=== PATIENT | female | born 1995 | race Caucasian/White ===

== ENCOUNTER 2016-08-12 09:05 | Emergency (ER) | payer BC ==
--- NOTE | 2016-08-13 02:31 | ED ORDER SUMMARY ---
..... Patient: LIONEL PATTEN OrderSheet [facility] VisitID: [id number] [address] [place] [address] 21y, F Registration Date/Time: 08/12/2016 ORDER SHEET Weight: 77.1 kg (stated) Allergies: Codeine GENERAL ORDERS: CBC w Diff Urgent (10:12 08/12/2016 Leighton WAYNE) (Ack 10:21 Lynnette) (11:05 German R.N.) CMP Urgent (10:12 08/12/2016 Leighotn WAYNE) (Ack 10:21 TOMoekali) (11:05 German R.N.) UA-Culture if indicated Urgent (10:12 08/12/2016 Leighton WAYNE) (Ack 10:21 Lynnette) (10:41 German R.N.) Old Records (from walk in clinic.) (10:13 08/12/2016 Leighton WAYNE) (Ack 10:21 Lynnette) (10:27 Lynnette) MEDICATION ORDERS: IV FLUIDS: IV NS : initial bolus 1000 mL (1000 mL/hr), then none - for X1 (NOW); Routine (10:11 08/12/2016 Leighton WAYNE) (Ack 10:17 German R.N.) (11:01 Ivan R.N.) Zofran IV 4 mg (NOW) (10:12 08/12/2016 Leighton WAYNE) (Ack 10:17 German R.N.) (11:01 Ivan R.N.) Rocephin IV 2 gm/50mL (NOW) (11:34 08/12/2016 Leighton WAYNE) (Ack 11:54 German R.N.) (12:13 Ivan R.N.) ORDER SHEET NOTES: [Electronically signed by Sakina Garnica R.N. (12:40 08/12/2016)] [Electronically signed by Guillermo Whitman MD (15:08 08/12/2016)] [Electronically locked/signed by Sakina Garnica R.N. (12:40 08/12/2016)]
--- NOTE | 2016-08-13 02:31 | ED CLINICAL REPORT ---
Clinical Report - Physicians/Mid Levels [facility] [address] [place] [address] 08/12/2016 9:08 Patient: LIONEL PATTEN Time Seen: 10:03 Aug 12 2016. Arrived- By private vehicle. Historian- patient. CPT: ER phys charges level 4 (#[id number]). HISTORY OF PRESENT ILLNESS Chief Complaint: DYSURIA. 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 Was seen at walk-in clinic on Wednesday, dx UTI, started Abx and gave 2 liters IVF.). Has only taken 1 pill of antibiotic due to picking up the medication yesterday. and still present. The symptoms are described as moderate. Modifying factors- worsened by urination. Not relieved by anything. No abdominal pain, pelvic pain, low back pain, flank pain or abnormal bleeding. No vaginal discharge. She has had pain with urination. Sexually active. control measures utilized. (Fever and chills.). Similar symptoms previously: As bad. Diagnosis: UTI. Recent medical care: Not recently seen/assessed. REVIEW OF SYSTEMS The patient has had nausea. She has had vomiting and chills. No fever, sore throat, cough, difficulty breathing or chest pain. No skin rash, enlarged lymph nodes or joint pain. Last food was dinner last night. Mild burning with urination.). All systems otherwise negative, except as recorded above. PAST HISTORY ( UTI - Urinary Tract Infection. Asthma.). Additional Surgeries: no known surgeries. Medications: Abx for UTI ???. NuvaRing Vaginal. Allergies: Codeine. Mild (Hyperactive). SOCIAL HISTORY Never smoker. Occasional alcohol use. No drug use. ADDITIONAL NOTES The nursing notes have been reviewed. PHYSICAL EXAM Vital Signs: 08/12/2016 09:25 BP: 118/71. HR: 80. RR: 16. O2 saturation: 100%. Temp: 97.7 F. Pain level now: 3/10. Appearance: Alert. No acute distress. HEENT: Normal external inspection. ENT: Pharynx normal. Neck: Neck supple. CVS: Heart sounds normal. Respiratory: No respiratory distress. Breath sounds normal. Chest nontender. Abdomen: Soft and nontender. Bowel sounds normal. Back: Normal external inspection. No CVA tenderness. Skin: Skin warm. Normal skin color. No rash. Extremities: Extremities nontender. No lower extremity edema. Neuro: Oriented X 3. Mood/affect normal. No motor deficit. No sensory deficit. LABS, X-RAYS, AND EKG Laboratory Tests: UA-Culture if indicated: (ARIELLE: 08/12/2016 10:30) ( [facility] 08/12/2016 11:00) Final results Test Result Flag Units (Reference) URINE COLOR YELLOW URINE APPEARANCE HAZY URINE GLUCOSE NEGATIVE (NEGATIVE) URINE BILIRUBIN NEGATIVE (NEGATIVE) URINE KETONE NEGATIVE (NEGATIVE) URINE SPECIFIC GRAVITY 1.010 (1.010-1.030) URINE PH 7.5 (5.0-8.0) URINE PROTEIN NEGATIVE (NEGATIVE) URINE UROBILINOGEN 0.2 EU/dL (0.2-1.0) URINE NITRITE NEGATIVE (NEGATIVE) URINE BLOOD NEGATIVE (NEGATIVE) URINE LEUK ESTERASE POSITIVE (NEGATIVE) URINE RBC NONE SEEN rbc/hpf (0-1) URINE WBC 3-5 wbc/hpf (0-1) URINE EPITHELIAL CELLS 5-10 EPI/hpf (0-5) URINE BACTERIA MANY (4+) (NONE SEEN) URINE COMMENT CULTURE INDICATED URINE CULTURES ARE SET-UP BASED ON THE FOLLOWING CRITERIA:POSITIVE NITRITEPOSITIVE LEUKOCYTE ESTERASEGREATER THAN 10 WHITE BLOOD CELLSMODERATE (2+) OR GREATER BACTERIA CBC w Diff: (ARIELLE: 08/12/2016 10:46) ( [facility] 08/12/2016 11:32) Final results Test Result Flag Units (Reference) WHITE BLOOD COUNT 9.9 K/uL (4.5-11.5) RED BLOOD COUNT 4.44 M/uL (4.00-5.20) HEMOGLOBIN 14.1 gm/dL (12.0-16.0) HEMATOCRIT 42.0 % (36.0-46.0) MEAN CELL VOLUME 95 fL (80-100) MEAN CORPUSCULAR HGB 32 pg (26-34) MEAN CORPUSCULAR HGB CONC 34 g/dL (31-37) RED CELL DISTRIBUTION WIDTH 12.8 % (11.6-14.8) PLATELET COUNT 290 K/uL (150-400) NEUTROPHIL % 79.8 H % (50-75) LYMPH % 15.4 L % (25-40) MONO % 4.1 % (3-14) EOSINOPHIL % 0.5 % (0-4) BASOPHIL % 0.2 % (0-2) CMP: (ARIELLE: 08/12/2016 10:46) ( MsgRcvd 08/12/2016 11:38) Final results Test Result Flag Units (Reference) GLUCOSE 120 H mg/dL (70-110) BUN 9 mg/dL (7-18) CREATININE 1.1 mg/dL (0.6-1.3) Estimated GFR >60 mL/min Estimated GFR- >60 mL/min Note: Persistent reduction over 3 months in eGFR<60 mL/min/1.73 m2 defines CKD. Patients with eGFR values>=60 mL/min/1.73 m2 may also have CKD if evidence ofpersistent proteinuria. Additional information may be foundat www.kidney.org. SODIUM 144 mmol/L (136-145) POTASSIUM 3.9 mmol/L (3.5-5.1) CHLORIDE 105 mmol/L (98-107) CARBON DIOXIDE 26 mmol/L (21-32) CALCIUM 9.7 mg/dL (8.5-10.1) TOTAL PROTEIN 7.9 g/dL (6.4-8.2) ALBUMIN 3.6 g/dL (3.3-5.0) BILIRUBIN, TOTAL 0.2 mg/dL (0.0-1.0) ALKALINE PHOSPHATASE 54 U/L (46-116) AST (SGOT) 16 U/L (15-37) ALT (SGPT) 16 U/L (12-78) . PROGRESS AND PROCEDURES Course of Care: IV NS Zofran 4 mg IV Rocephin 2g IV Patient is stable. Pt not aware of the name of her current antibiotic for her UTI. Patient/family counseled. Disposition: Discharged. Condition: stable. CLINICAL IMPRESSION Recent dental extraction Nausea and vomiting due to antibiotics and or vicodin Persistent UTI. INSTRUCTIONS No strenuous activity. Rest. Do not work today, for one day until better. Drink plenty of fluids. Warnings: Further evaluation is necessary. GENERAL WARNINGS: Return or contact your physician immediately if your condition worsens or changes unexpectedly, if not improving as expected, or if other problems arise. Your Current Medications: CONTINUE TAKING THE FOLLOWING MEDICATIONS: Abx for UTI ???*. NuvaRing Vaginal. Prescription Medications: Pyridium 200 mg: take 1 orally every 8 hours as needed for urinary problems. Dispense six (6). No refills. Substitution is permissible. Septra DS 800 mg / 160 mg: take 1 tablet orally every 12 hours for 7 days. Dispense fourteen (14). No refills. Substitution is permissible. Phenergan 25 mg suppositories: insert 1 rectally every 6 hours as needed for nausea. Dispense ten (10). No refill. Substitution is permissible Follow-up: Follow up with your doctor in two days if not better. Understanding of the discharge instructions verbalized by patient and parent. (Electronically signed by Guillermo Whitman MD 08/12/2016 15:08)
--- NOTE | 2016-08-13 02:31 | ED ORDER SUMMARY ---
..... Patient: LIONEL PATTEN OrderSheet [facility] VisitID: [id number] [address] [place] [address] 21y, F Registration Date/Time: 08/12/2016 ORDER SHEET Weight: 77.1 kg (stated) Allergies: Codeine GENERAL ORDERS: CBC w Diff Urgent (10:12 08/12/2016 Leighton WAYNE) (Ack 10:21 Lynnette) (11:05 German R.N.) CMP Urgent (10:12 08/12/2016 Leighton WAYNE) (Ack 10:21 TOMoekali) (11:05 German R.N.) UA-Culture if indicated Urgent (10:12 08/12/2016 Leighton WAYNE) (Ack 10:21 Lynnette) (10:41 German R.N.) Old Records (from walk in clinic.) (10:13 08/12/2016 Leighton WAYNE) (Ack 10:21 Lynnette) (10:27 Lynnette) MEDICATION ORDERS: IV FLUIDS: IV NS : initial bolus 1000 mL (1000 mL/hr), then none - for X1 (NOW); Routine (10:11 08/12/2016 Leighton WAYNE) (Ack 10:17 German R.N.) (11:01 Ivan R.N.) Zofran IV 4 mg (NOW) (10:12 08/12/2016 Leighton WAYNE) (Ack 10:17 German R.N.) (11:01 Ivan R.N.) Rocephin IV 2 gm/50mL (NOW) (11:34 08/12/2016 Leighton WAYNE) (Ack 11:54 German R.N.) (12:13 Ivan R.N.) ORDER SHEET NOTES: [Electronically signed by Sakina Garnica R.N. (12:40 08/12/2016)] [Electronically signed by Guillermo Whitman MD (15:08 08/12/2016)] [Electronically locked/signed by Sakina Garnica R.N. (12:40 08/12/2016)]
--- NOTE | 2016-08-13 02:31 | ED NURSING NOTES ---
Clinical Report - [facility] [address] [place] [address] 08/12/2016 9:08 Patient: LIONEL PATTEN TRIAGE Triage time 09:26. Acuity: LEVEL 3. Chief Complaint: (Vomiting and chills. Was seen at walk-in clinic on Wednesday, dx UTI, started Abx and gave 2 liters IVF.). 09:30 08/12/16. SEPSIS SCREEN: Sepsis Screen. Negative (no infection suspected/documented). EDELMIRA COMA SCORE: Edelmira Coma Scale: 15- eyes open spontaneously (4); best verbal response- oriented x 4 (5); best motor response- obeys commands (6). --09:35 Bassam Freed R.N. 09:25 08/12/16. BP: 118/71. HR: 80. RR: 16. O2 saturation: 100% on room air. Temp: 97.7 F (oral). Pain level now: 08/14. --09:35 Bassam Freed R.N. Weight: 77.1 kg stated. Height/Length: 67 inches Per Patient. BMI: 26.6. --09:29 Bassam Freed R.N. Medications NuvaRing Vaginal. --09:27 Bassam Freed R.N. Abx for UTI ???. --09:27 Bassam Freed R.N. Allergies Codeine. Mild (Hyperactive) --09:27 Bassam Freed R.N. History Arrived by private vehicle. Historian: patient and family. ( Last food was dinner last night. Mild burning with urination.). 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 PAST MEDICAL HX: Last normal menstrual period- none - Nuva Ring. SOCIAL HX: Never smoker. Occasional alcohol use. No drug use. ABUSE ASSESSMENT: No report of abuse. --09:35 Bassam Freed R.N. PROBLEMS: UTI - Urinary Tract Infection. Asthma. --09:28 Bassam Freed R.N. ADDITIONAL SURGERIES: no known surgeries. Interventions ID band on patient. To treatment room. --09:35 Bassam Freed R.N. PHYSICAL ASSESSMENT 09:36 08/12/16. Ambulatory to room. GENERAL / NEURO / PSYCH: Alert. Oriented X 4. HEENT: Pupils equal, round and reactive to light. No facial asymmetry noted. Mucous membranes are pink. RESPIRATORY: Respirations not labored. Chest nontender. Breath sounds within normal limits. CVS: Capillary refill less than 2 seconds. Pulses within normal limits. GI / : ( abd tender only when vomiting, otherwise pain free). Abdomen soft and normal bowel sounds. SKIN: Skin is pale. Skin is warm and dry. Normal skin turgor. --09:36 Bassam Freed R.N. NURSING PROGRESS NOTES late entry -09:29. Patient gowned. Head of bed elevated. Reassurance given. Two patient identifiers checked. Call light placed in reach. Bed placed in lowest position. Brakes of bed on. Patient ready for evaluation- chart flagged. --09:59 Bassam Freed R.N. 10:42 08/12/16. Patient ID band checked for patient name and birthdate. Instructions provided to collect clean catch urine and patient verbalized understanding. Clean catch urine collected with return of yellow-colored urine; sample sent to lab for urinalysis and culture. Specimen labeled in the presence of the patient. --10:42 Pascual Pardo R.N. 10:50 08/12/2016 Site #1 started via IV in the left antecubital space with an 20g angiocath; two attempts. Blood drawn: rainbow set. Labeled in the presence of the patient and sent to the lab (two unsuccessful IV attempts. Pascual Barrett RN obtained IV access.). --11:00 Sakina Garnica R.N. 11:00 08/12/2016 Started bag #1 1000 mL IV Fluids IV NS (Saline); bolus of 1000 mL over 1 hour(s) via site #1. Allergies verified and confirmed 5 rights. IV patency established. IV site checked: no pain, redness, or swelling. IV flushed thoroughly pre- and post-medication administration. --11:01 Sakina Garnica R.N. 11:01 08/12/2016 Zofran (Ondansetron HCl) IVP 4 mg given over 2 minute(s) via site #1. Allergies verified and confirmed 5 rights. IV patency established. IV site checked: no pain, redness, or swelling. IV flushed thoroughly pre- and post-medication administration. IVP given by RN. --11:01 Sakina Garnica R.N. 11:28 08/12/16. BP: 112/70. HR: 74. RR: 14. O2 saturation: 100% on room air. --11:28 Pascual Pardo R.N. 11:28 08/12/2016 IV Fluids IV NS Discontinued: bag #1 infused. Total amount infused: 1000 mL. IV patency established. IV site checked: no pain, redness, or swelling. IV flushed thoroughly. --11:28 Pascual Pardo R.N. 11:28 08/12/16. --11:28 Pascual Pardo R.N. 12:11 08/12/2016 Started 2 gm of Rocephin (CefTRIAXone Sodium) IVPB in bag #1 50 mL; at 150 mL/hr over 20 minute(s) via site #1; Allergies verified and confirmed 5 rights. IV patency established. IV site checked: no pain, redness, or swelling. IV flushed thoroughly pre- and post-medication administration. --12:13 Sakina Garnica R.N. DISPOSITION / DISCHARGE 12:36 08/12/16. --12:36 Sakina Garnica R.N. 12:35 08/12/16. BP: 113/65. HR: 54. RR: 17. O2 saturation: 95%. Temp: deferred. Pain level now: 0/10. --12:36 Sakina Garnica R.N. 12:38 08/12/16. No learning barriers present. Discharge instructions provided and reviewed with the patient and parent. Reviewed medication(s). Treatments reviewed. Activity restrictions reviewed. Work note given. Patient verbalized understanding. Written instructions provided in Cambodian. The patient was discharged by the physician. She was discharged home. --12:38 Sakina Garnica R.N. Locked/Released at 08/12/2016 12:40 by Sakina Garnica R.N.
--- NOTE | 2016-08-13 02:31 | ED CLINICAL REPORT ---
Clinical Report - Physicians/Mid Levels [facility] [address] [place] [address] 08/12/2016 9:08 Patient: LIONEL PATTEN Time Seen: 10:03 Aug 12 2016. Arrived- By private vehicle. Historian- patient. CPT: ER phys charges level 4 (#[id number]). HISTORY OF PRESENT ILLNESS Chief Complaint: DYSURIA. 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 Was seen at walk-in clinic on Wednesday, dx UTI, started Abx and gave 2 liters IVF.). Has only taken 1 pill of antibiotic due to picking up the medication yesterday. and still present. The symptoms are described as moderate. Modifying factors- worsened by urination. Not relieved by anything. No abdominal pain, pelvic pain, low back pain, flank pain or abnormal bleeding. No vaginal discharge. She has had pain with urination. Sexually active. control measures utilized. (Fever and chills.). Similar symptoms previously: As bad. Diagnosis: UTI. Recent medical care: Not recently seen/assessed. REVIEW OF SYSTEMS The patient has had nausea. She has had vomiting and chills. No fever, sore throat, cough, difficulty breathing or chest pain. No skin rash, enlarged lymph nodes or joint pain. Last food was dinner last night. Mild burning with urination.). All systems otherwise negative, except as recorded above. PAST HISTORY ( UTI - Urinary Tract Infection. Asthma.). Additional Surgeries: no known surgeries. Medications: Abx for UTI ???. NuvaRing Vaginal. Allergies: Codeine. Mild (Hyperactive). SOCIAL HISTORY Never smoker. Occasional alcohol use. No drug use. ADDITIONAL NOTES The nursing notes have been reviewed. PHYSICAL EXAM Vital Signs: 08/12/2016 09:25 BP: 118/71. HR: 80. RR: 16. O2 saturation: 100%. Temp: 97.7 F. Pain level now: 3/10. Appearance: Alert. No acute distress. HEENT: Normal external inspection. ENT: Pharynx normal. Neck: Neck supple. CVS: Heart sounds normal. Respiratory: No respiratory distress. Breath sounds normal. Chest nontender. Abdomen: Soft and nontender. Bowel sounds normal. Back: Normal external inspection. No CVA tenderness. Skin: Skin warm. Normal skin color. No rash. Extremities: Extremities nontender. No lower extremity edema. Neuro: Oriented X 3. Mood/affect normal. No motor deficit. No sensory deficit. LABS, X-RAYS, AND EKG Laboratory Tests: UA-Culture if indicated: (ARIELLE: 08/12/2016 10:30) ( [facility] 08/12/2016 11:00) Final results Test Result Flag Units (Reference) URINE COLOR YELLOW URINE APPEARANCE HAZY URINE GLUCOSE NEGATIVE (NEGATIVE) URINE BILIRUBIN NEGATIVE (NEGATIVE) URINE KETONE NEGATIVE (NEGATIVE) URINE SPECIFIC GRAVITY 1.010 (1.010-1.030) URINE PH 7.5 (5.0-8.0) URINE PROTEIN NEGATIVE (NEGATIVE) URINE UROBILINOGEN 0.2 EU/dL (0.2-1.0) URINE NITRITE NEGATIVE (NEGATIVE) URINE BLOOD NEGATIVE (NEGATIVE) URINE LEUK ESTERASE POSITIVE (NEGATIVE) URINE RBC NONE SEEN rbc/hpf (0-1) URINE WBC 3-5 wbc/hpf (0-1) URINE EPITHELIAL CELLS 5-10 EPI/hpf (0-5) URINE BACTERIA MANY (4+) (NONE SEEN) URINE COMMENT CULTURE INDICATED URINE CULTURES ARE SET-UP BASED ON THE FOLLOWING CRITERIA:POSITIVE NITRITEPOSITIVE LEUKOCYTE ESTERASEGREATER THAN 10 WHITE BLOOD CELLSMODERATE (2+) OR GREATER BACTERIA CBC w Diff: (ARIELLE: 08/12/2016 10:46) ( [facility] 08/12/2016 11:32) Final results Test Result Flag Units (Reference) WHITE BLOOD COUNT 9.9 K/uL (4.5-11.5) RED BLOOD COUNT 4.44 M/uL (4.00-5.20) HEMOGLOBIN 14.1 gm/dL (12.0-16.0) HEMATOCRIT 42.0 % (36.0-46.0) MEAN CELL VOLUME 95 fL (80-100) MEAN CORPUSCULAR HGB 32 pg (26-34) MEAN CORPUSCULAR HGB CONC 34 g/dL (31-37) RED CELL DISTRIBUTION WIDTH 12.8 % (11.6-14.8) PLATELET COUNT 290 K/uL (150-400) NEUTROPHIL % 79.8 H % (50-75) LYMPH % 15.4 L % (25-40) MONO % 4.1 % (3-14) EOSINOPHIL % 0.5 % (0-4) BASOPHIL % 0.2 % (0-2) CMP: (ARIELLE: 08/12/2016 10:46) ( MsgRcvd 08/12/2016 11:38) Final results Test Result Flag Units (Reference) GLUCOSE 120 H mg/dL (70-110) BUN 9 mg/dL (7-18) CREATININE 1.1 mg/dL (0.6-1.3) Estimated GFR >60 mL/min Estimated GFR- >60 mL/min Note: Persistent reduction over 3 months in eGFR<60 mL/min/1.73 m2 defines CKD. Patients with eGFR values>=60 mL/min/1.73 m2 may also have CKD if evidence ofpersistent proteinuria. Additional information may be foundat www.kidney.org. SODIUM 144 mmol/L (136-145) POTASSIUM 3.9 mmol/L (3.5-5.1) CHLORIDE 105 mmol/L (98-107) CARBON DIOXIDE 26 mmol/L (21-32) CALCIUM 9.7 mg/dL (8.5-10.1) TOTAL PROTEIN 7.9 g/dL (6.4-8.2) ALBUMIN 3.6 g/dL (3.3-5.0) BILIRUBIN, TOTAL 0.2 mg/dL (0.0-1.0) ALKALINE PHOSPHATASE 54 U/L (46-116) AST (SGOT) 16 U/L (15-37) ALT (SGPT) 16 U/L (12-78) . PROGRESS AND PROCEDURES Course of Care: IV NS Zofran 4 mg IV Rocephin 2g IV Patient is stable. Pt not aware of the name of her current antibiotic for her UTI. Patient/family counseled. Disposition: Discharged. Condition: stable. CLINICAL IMPRESSION Recent dental extraction Nausea and vomiting due to antibiotics and or vicodin Persistent UTI. INSTRUCTIONS No strenuous activity. Rest. Do not work today, for one day until better. Drink plenty of fluids. Warnings: Further evaluation is necessary. GENERAL WARNINGS: Return or contact your physician immediately if your condition worsens or changes unexpectedly, if not improving as expected, or if other problems arise. Your Current Medications: CONTINUE TAKING THE FOLLOWING MEDICATIONS: Abx for UTI ???*. NuvaRing Vaginal. Prescription Medications: Pyridium 200 mg: take 1 orally every 8 hours as needed for urinary problems. Dispense six (6). No refills. Substitution is permissible. Septra DS 800 mg / 160 mg: take 1 tablet orally every 12 hours for 7 days. Dispense fourteen (14). No refills. Substitution is permissible. Phenergan 25 mg suppositories: insert 1 rectally every 6 hours as needed for nausea. Dispense ten (10). No refill. Substitution is permissible Follow-up: Follow up with your doctor in two days if not better. Understanding of the discharge instructions verbalized by patient and parent. (Electronically signed by Guillermo Whitman MD 08/12/2016 15:08)
--- NOTE | 2016-08-13 02:33 | ED MED RECONCILIATION SUMMARY ---
Patient: LIONEL PATTEN Medication Reconciliation Report [facility] VisitID: [id number] [address] [place] [address] 21y, F Registration Date/Time: 08/12/2016 Weight: 77.1 kg Height/Length: 67 in. BMI: 26.6 ALLERGIES: Codeine The patient's Home Medications are listed below: CONTINUE TAKING THE FOLLOWING MEDICATIONS: Abx for UTI ??? NuvaRing Vaginal The source(s) of the original Home Medication information: Not obtained. The following Medications were given to the patient in the Emergency Department: IV NS IV Fluids bolus 1000 mL over 1 hour(s), administered: 08/12/2016 11:00:00 AM Zofran [IVP] IVP 4 mg, administered: 08/12/2016 11:01:00 AM Rocephin [IVPB] IVPB bolus 0, then 2 gm 150 mL/hr, administered: 08/12/2016 12:11:00 PM The following Medications were prescribed to the patient: Pyridium 200 mg: take 1 orally every 8 hours as needed for urinary problems. Dispense six (6). No refills. Substitution is permissible. -- Guillermo Whitman MD Septra DS 800 mg / 160 mg: take 1 tablet orally every 12 hours for 7 days. Dispense fourteen (14). No refills. Substitution is permissible. -- Guillermo Whitman MD Phenergan 25 mg suppositories: insert 1 rectally every 6 hours as needed for nausea. Dispense ten (10). No refill. Substitution is permissible -- Guillermo Whitman MD
--- NOTE | 2016-08-13 02:33 | ED DISCHARGE INSTRUCTIONS ---
Patient: LIONEL PATTEN General Instructions [facility] VisitID: [id number] [place] [address] 21y, F Registration Date/Time: 08/12/2016 Recent dental extraction Nausea and vomiting due to antibiotics and or vicodin Persistent UTI. INSTRUCTIONS No strenuous activity. Rest. Do not work today, for one day until better. Drink plenty of fluids. Warnings: Further evaluation is necessary. GENERAL WARNINGS: Return or contact your physician immediately if your condition worsens or changes unexpectedly, if not improving as expected, or if other problems arise. Your Current Medications: CONTINUE TAKING THE FOLLOWING MEDICATIONS: Abx for UTI ???*. NuvaRing Vaginal. Prescription Medications: Pyridium 200 mg: take 1 orally every 8 hours as needed for urinary problems. Dispense six (6). No refills. Substitution is permissible. Septra DS 800 mg / 160 mg: take 1 tablet orally every 12 hours for 7 days. Dispense fourteen (14). No refills. Substitution is permissible. Phenergan 25 mg suppositories: insert 1 rectally every 6 hours as needed for nausea. Dispense ten (10). No refill. Substitution is permissible Follow-up: Follow up with your doctor in two days if not better. Understanding of the discharge instructions verbalized by patient and parent. ADDITIONAL INFORMATION Promethazine Hydrochloride Oral tablet What is this medicine? PROMETHAZINE (proe METH a zeen) is an antihistamine. It is used to treat allergic reactions and to treat or prevent nausea and vomiting from illness or motion sickness. It is also used to make you sleep before surgery, and to help treat pain or nausea after surgery. How should I use this medicine? Take this medicine by mouth with a glass of water. Follow the directions on the prescription label. Take your doses at regular intervals. Do not take your medicine more often than directed. Talk to your couturiere regarding the use of this medicine in children. Special care may be needed. This medicine should not be given to infants and children younger than 2 years old. What side effects may I notice from receiving this medicine? Side effects that you should report to your doctor or health care transitions nurse as soon as possible: blurred vision irregular heartbeat, palpitations or chest pain muscle or facial twitches pain or difficulty passing urine seizures skin rash slowed or shallow breathing unusual bleeding or bruising yellowing of the eyes or skin Side effects that usually do not require medical attention (report to your doctor or health care transitions nurse if they continue or are bothersome): headache nightmares, agitation, nervousness, excitability, not able to sleep (these are more likely in children) stuffy nose What may interact with this medicine? Do not take this medicine with any of the following medications: medicines called MAO Inhibitors like Nardil, Parnate, Marplan, Eldepryl other phenothiazines like trimethobenzamide This medicine may also interact with the following medications: barbiturates like phenobarbital bromocriptine certain antidepressants certain antihistamines used in allergy or cold medicines epinephrine levodopa medicines for sleep medicines for mental problems and psychotic disturbances medicines for movement abnormalities as in Parkinson's disease, or for gastrointestinal problems muscle relaxants prescription pain medicines What if I miss a dose? If you miss a dose, take it as soon as you can. If it is almost time for your next dose, take only that dose. Do not take double or extra doses. Where should I keep my medicine? Keep out of the reach of children. Store at room temperature, between 20 and 25 degrees C (68 and 77 degrees F). Protect from light. Throw away any unused medicine after the expiration date. What should I tell my health care provider before I take this medicine? They need to know if you have any of these conditions: glaucoma high blood pressure or heart disease kidney disease liver disease lung or breathing disease, like asthma prostate trouble pain or difficulty passing urine seizures an unusual or allergic reaction to promethazine or phenothiazines, other medicines, foods, dyes, or preservatives or trying to get breast-feeding What should I watch for while using this medicine? Tell your doctor or health care transitions nurse if your symptoms do not start to get better in 1 to 2 days. You may get drowsy or dizzy. Do not drive, use machinery, or do anything that needs mental alertness until you know how this medicine affects you. To reduce the risk of dizzy or fainting spells, do not stand or sit up quickly, especially if you are an older patient. Alcohol may increase dizziness and drowsiness. Avoid alcoholic drinks. Your mouth may get dry. Chewing sugarless gum or sucking hard candy, and drinking plenty of water may help. Contact your doctor if the problem does not go away or is severe. This medicine may cause dry eyes and blurred vision. If you wear contact lenses you may feel some discomfort. Lubricating drops may help. See your eye doctor if the problem does not go away or is severe. This medicine can make you more sensitive to the sun. Keep out of the sun. If you cannot avoid being in the sun, wear protective clothing and use sunscreen. Do not use sun lamps or tanning beds/booths. If you are diabetic, check your blood-sugar levels regularly. You have been given the following additional information: Promethazine Hydrochloride Oral tablet No strenuous activity. Rest. Do not work today, for one day until better. (Electronically signed by Guillermo Whitman MD 08/12/2016 15:08)
--- NOTE | 2016-08-13 02:33 | ED MAR SUMMARY ---
..... Medication Administration Record [facility] [address] [place] [address] Patient: LIONEL PATTEN Visit ID: [id number] 21y, F Weight: 77.1 kg Height/Length: 67 in BMI: 26.6 ALLERGIES: Codeine Start 11:00 08/12/2016 Sakina Garnica R.N., Stop 11:28 08/12/2016 Pascual Pardo R.N. Medication Administered: IV NS (SALINE), Dose: IV Fluids, Bolus: 1000 mL over 1 hour(s), Dispensed: 1000 mL bag, Site: #1 left AC. Medication Ordered: IV NS : initial bolus 1000 mL (1000 mL/hr), then none - for X1 (NOW); Routine. Given 11:01 08/12/2016 Sakina Garnica R.N. Medication Administered: ZOFRAN [IVP] (ONDANSETRON HCL), Dose: 4 mg IVP over 2 minute(s), Site: #1 left AC. Medication Ordered: Zofran IV 4 mg (NOW). Start 12:11 08/12/2016 Sakina Garnica R.N. Medication Administered: ROCEPHIN [IVPB] (CEFTRIAXONE SODIUM), Dose: 2 gm IVPB over 20 minute(s), Rate: 150 mL/hr, Dispensed: 50 mL bag, Site: #1 left AC. Medication Ordered: Rocephin IV 2 gm/50mL (NOW).
--- NOTE | 2016-08-13 02:33 | ED MAR SUMMARY ---
..... Medication Administration Record [facility] [address] [place] [address] Patient: LIONEL PATTEN Visit ID: [id number] 21y, F Weight: 77.1 kg Height/Length: 67 in BMI: 26.6 ALLERGIES: Codeine Start 11:00 08/12/2016 Sakina Garnica R.N., Stop 11:28 08/12/2016 Pascual Pardo R.N. Medication Administered: IV NS (SALINE), Dose: IV Fluids, Bolus: 1000 mL over 1 hour(s), Dispensed: 1000 mL bag, Site: #1 left AC. Medication Ordered: IV NS : initial bolus 1000 mL (1000 mL/hr), then none - for X1 (NOW); Routine. Given 11:01 08/12/2016 Sakina Garnica R.N. Medication Administered: ZOFRAN [IVP] (ONDANSETRON HCL), Dose: 4 mg IVP over 2 minute(s), Site: #1 left AC. Medication Ordered: Zofran IV 4 mg (NOW). Start 12:11 08/12/2016 Sakina Garnica R.N. Medication Administered: ROCEPHIN [IVPB] (CEFTRIAXONE SODIUM), Dose: 2 gm IVPB over 20 minute(s), Rate: 150 mL/hr, Dispensed: 50 mL bag, Site: #1 left AC. Medication Ordered: Rocephin IV 2 gm/50mL (NOW).
--- NOTE | 2016-08-13 02:33 | ED DISCHARGE INSTRUCTIONS ---
Patient: LIONEL PATTEN General Instructions [facility] VisitID: [id number] [place] [address] 21y, F Registration Date/Time: 08/12/2016 Recent dental extraction Nausea and vomiting due to antibiotics and or vicodin Persistent UTI. INSTRUCTIONS No strenuous activity. Rest. Do not work today, for one day until better. Drink plenty of fluids. Warnings: Further evaluation is necessary. GENERAL WARNINGS: Return or contact your physician immediately if your condition worsens or changes unexpectedly, if not improving as expected, or if other problems arise. Your Current Medications: CONTINUE TAKING THE FOLLOWING MEDICATIONS: Abx for UTI ???*. NuvaRing Vaginal. Prescription Medications: Pyridium 200 mg: take 1 orally every 8 hours as needed for urinary problems. Dispense six (6). No refills. Substitution is permissible. Septra DS 800 mg / 160 mg: take 1 tablet orally every 12 hours for 7 days. Dispense fourteen (14). No refills. Substitution is permissible. Phenergan 25 mg suppositories: insert 1 rectally every 6 hours as needed for nausea. Dispense ten (10). No refill. Substitution is permissible Follow-up: Follow up with your doctor in two days if not better. Understanding of the discharge instructions verbalized by patient and parent. ADDITIONAL INFORMATION Promethazine Hydrochloride Oral tablet What is this medicine? PROMETHAZINE (proe METH a zeen) is an antihistamine. It is used to treat allergic reactions and to treat or prevent nausea and vomiting from illness or motion sickness. It is also used to make you sleep before surgery, and to help treat pain or nausea after surgery. How should I use this medicine? Take this medicine by mouth with a glass of water. Follow the directions on the prescription label. Take your doses at regular intervals. Do not take your medicine more often than directed. Talk to your air intercept controller supervisor regarding the use of this medicine in children. Special care may be needed. This medicine should not be given to infants and children younger than 2 years old. What side effects may I notice from receiving this medicine? Side effects that you should report to your doctor or health career services representative as soon as possible: blurred vision irregular heartbeat, palpitations or chest pain muscle or facial twitches pain or difficulty passing urine seizures skin rash slowed or shallow breathing unusual bleeding or bruising yellowing of the eyes or skin Side effects that usually do not require medical attention (report to your doctor or health career services representative if they continue or are bothersome): headache nightmares, agitation, nervousness, excitability, not able to sleep (these are more likely in children) stuffy nose What may interact with this medicine? Do not take this medicine with any of the following medications: medicines called MAO Inhibitors like Nardil, Parnate, Marplan, Eldepryl other phenothiazines like trimethobenzamide This medicine may also interact with the following medications: barbiturates like phenobarbital bromocriptine certain antidepressants certain antihistamines used in allergy or cold medicines epinephrine levodopa medicines for sleep medicines for mental problems and psychotic disturbances medicines for movement abnormalities as in Parkinson's disease, or for gastrointestinal problems muscle relaxants prescription pain medicines What if I miss a dose? If you miss a dose, take it as soon as you can. If it is almost time for your next dose, take only that dose. Do not take double or extra doses. Where should I keep my medicine? Keep out of the reach of children. Store at room temperature, between 20 and 25 degrees C (68 and 77 degrees F). Protect from light. Throw away any unused medicine after the expiration date. What should I tell my health care provider before I take this medicine? They need to know if you have any of these conditions: glaucoma high blood pressure or heart disease kidney disease liver disease lung or breathing disease, like asthma prostate trouble pain or difficulty passing urine seizures an unusual or allergic reaction to promethazine or phenothiazines, other medicines, foods, dyes, or preservatives or trying to get breast-feeding What should I watch for while using this medicine? Tell your doctor or health career services representative if your symptoms do not start to get better in 1 to 2 days. You may get drowsy or dizzy. Do not drive, use machinery, or do anything that needs mental alertness until you know how this medicine affects you. To reduce the risk of dizzy or fainting spells, do not stand or sit up quickly, especially if you are an older patient. Alcohol may increase dizziness and drowsiness. Avoid alcoholic drinks. Your mouth may get dry. Chewing sugarless gum or sucking hard candy, and drinking plenty of water may help. Contact your doctor if the problem does not go away or is severe. This medicine may cause dry eyes and blurred vision. If you wear contact lenses you may feel some discomfort. Lubricating drops may help. See your eye doctor if the problem does not go away or is severe. This medicine can make you more sensitive to the sun. Keep out of the sun. If you cannot avoid being in the sun, wear protective clothing and use sunscreen. Do not use sun lamps or tanning beds/booths. If you are diabetic, check your blood-sugar levels regularly. You have been given the following additional information: Promethazine Hydrochloride Oral tablet No strenuous activity. Rest. Do not work today, for one day until better. (Electronically signed by Guillermo Whitman MD 08/12/2016 15:08)
--- NOTE | 2016-08-13 02:33 | ED MED RECONCILIATION SUMMARY ---
Patient: LIONEL PATTEN Medication Reconciliation Report [facility] VisitID: [id number] [address] [place] [address] 21y, F Registration Date/Time: 08/12/2016 Weight: 77.1 kg Height/Length: 67 in. BMI: 26.6 ALLERGIES: Codeine The patient's Home Medications are listed below: CONTINUE TAKING THE FOLLOWING MEDICATIONS: Abx for UTI ??? NuvaRing Vaginal The source(s) of the original Home Medication information: Not obtained. The following Medications were given to the patient in the Emergency Department: IV NS IV Fluids bolus 1000 mL over 1 hour(s), administered: 08/12/2016 11:00:00 AM Zofran [IVP] IVP 4 mg, administered: 08/12/2016 11:01:00 AM Rocephin [IVPB] IVPB bolus 0, then 2 gm 150 mL/hr, administered: 08/12/2016 12:11:00 PM The following Medications were prescribed to the patient: Pyridium 200 mg: take 1 orally every 8 hours as needed for urinary problems. Dispense six (6). No refills. Substitution is permissible. -- Guillermo Whitman MD Septra DS 800 mg / 160 mg: take 1 tablet orally every 12 hours for 7 days. Dispense fourteen (14). No refills. Substitution is permissible. -- Guillermo Whitman MD Phenergan 25 mg suppositories: insert 1 rectally every 6 hours as needed for nausea. Dispense ten (10). No refill. Substitution is permissible -- Guillermo Whitman MD
== END 2016-08-12 09:08 | disposition home or self-care (01) ==
LOC: ED SRH 09:05
DX: R11.2 Nausea with vomiting, unspecified (principal); T36.95XA Adverse effect of unspecified systemic antibiotic, initial encounter; T50.995A Adverse effect of other drugs, medicaments and biological substances, initial encounter; N39.0 Urinary tract infection, site not specified; Z98.818 Other dental procedure status; Z88.5 Allergy status to narcotic agent
CPT/HCPCS: 90004; 90100; 90469; 95059